=== PATIENT | male | born 1970 | race Asian ===

== ENCOUNTER 2018-03-05 09:55 | Day surgery (SDC) | payer OTHER, SELFPAY ==
[2018-03-05 10:15] VITALS: BP 155/81; PULSE 56; RESP 16; TEMP 36.1; O2SAT 97; BMI 31.3
[2018-03-05] MEDS: SODIUM CHLORIDE 0.9% 1,000 ML 42 ML IV (10:58)
--- NOTE | 2018-03-05 11:30 | PM.HP.1 ---
History of Present Illness Date Patient Seen: 03/05/18 Time Patient Seen: 11:31 Chief complaint: colonoscopy [id number] Narrative: Screening colonoscopy Patient History Family & Social History Social History: household members spouse Meds Home Medications Medication Instructions Recorded Confirmed Type sildenafil [Viagra] 25 mg PO DAILY PRN 03/05/18 03/05/18 History Allergies Allergy/AdvReac Type Severity Reaction Status Date / Time Penicillins Allergy Unknown Verified 03/05/18 10:30 Exam Vital Signs (past 8 hours): - 03/05/18 10:15 Temperature 97 F L Pulse Rate 56 L Respiratory Rate 16 Blood Pressure 155/81 H Pulse Oximetry 97 Oxygen Delivery Method Room Air Narrative Exam Narrative: Oropharynx free of lesions Chest clear to auscultation percussion Cardiac exam reveals no S3 or murmur. Assessment & Plan Plan: Assessment/Plan Narrative: Need for 1st screening colonoscopy. Asymptomatic. Risks, benefits, alternatives have been explained.
--- NOTE | 2018-03-05 11:32 | PM.OP.ENDO ---
Operative Date/Time/Diagnoses Date of procedure: 03/05/18 Time of procedure: 11:32 Pre-op diagnosis: See indication and findings Post-op diagnosis: same Procedure & Clinicians Study performed: Screening colonoscopy Same procedure as scheduled: Yes Indications: Screening Surgeon: Lon Marie Procedure Notes Procedure in detail: After informed consent was obtained the patient was placed in the left lateral decubitus position. Video colonoscope was introduced the rectum slowly advanced to the cecum. On slow withdrawal mucosa was carefully examined. Preparation was good. The scope was removed. The patient tolerated procedure well. Blood loss none Complications none Sedation Total sedation time 14 min Versed 5 mg fentanyl 100 mcg IV titration Findings 1. Normal colonoscopy to cecum Patient needs follow-up colonoscopy
[2018-03-05] MEDS: MIDAZOLAM 5 MG/5 ML VIAL IV (11:42)
[2018-03-05] MEDS: fentaNYL 250 MCG/5 ML INJ IV (11:43)
[2018-03-05 11:50] VITALS: BP 139/90; PULSE 61; RESP 16; TEMP 36.3; O2SAT 98
== END 2018-03-05 12:25 | disposition home or self-care (01) ==
PROVIDERS: PCP Physician Assistant Medical; Visit Provider Internal Medicine Gastroenterology
PROC: 0DJD8ZZ Inspection of Lower Intestinal Tract, Via Natural or Artificial Opening Endoscopic (ICD-10-PCS; CPT 45378; principal; 2018-03-05 11:00)
DX: Z12.11 Encounter for screening for malignant neoplasm of colon (principal)
CPT/HCPCS: 45378; J2250; J3010